=== PATIENT | male | born 2000 | race Caucasian/White ===

== ENCOUNTER 2022-06-17 16:48 | Emergency (ER) | payer OTHER ==
[2022-06-17 18:16] LABS: Absolute Lymphocytes (CBC) 1.1 K/uL (0.7-4.9); Hematocrit 53.1 % (39.6-49.0); MCV 91.2 fL (80-100); MPV 8.3 fL (7.6-11.3); RBC Red Blood Cell Count 5.82 M/uL (4.33-5.43)
[2022-06-17 18:57] LABS: SARS-COV-2 RT PCR POSITIVE (NEGATIVE)
[2022-06-17 18:58] LABS: Albumin 3.8 g/dL (3.4-5.0); Bilirubin Total 0.8 mg/dL (0.2-1.0); Potassium 3.5 mmol/L (3.5-5.1); Protein, Total 7.7 g/dL (6.4-8.2)
--- NOTE | 2022-06-17 19:04 | EDPHYS ---
Physician Documentation [facility] Name: Mohan Argueta Age: 21 yrs Sex: Male : 2000 Arrival Date: 06/17/2022 Time: 16:49 Bed 11 Private MD: ED Physician Zbigniew Singh HPI: 06/17 17:20 This 21 yrs old Male presents to ER via Ambulatory with complaints of Diarrhea, jh7 Dizziness, prednisone withdrawal. 17:20 The patient presents to the emergency department with diarrhea. Onset: The jh7 symptoms/episode began/occurred 5 day(s) ago. Associated signs and symptoms: Pertinent positives: diarrhea, Sore throat, body aches, Pertinent negatives: fever, nausea, vomiting. Patient seen at [facility] on 06/12. He tested negative on all swabs and was prescribed prednisone 40 mg BIANCA x 5 days. States that over the past few days he has developed diarrhea and body aches. He states that he stopped prednisone on day 3 and is concerned that he might be withdrawing from it due to his symptoms.. Historical: - Allergies: 17:33 Dog/Cat; vg1 - Home Meds: 17:33 Trilogy [Active]; Albuterol Inhl [Active]; Zyrtec Oral [Active]; vg1 - PMHx: 17:33 Asthma; vg1 - PSHx: 17:33 inguinal hernia; Gynecomastia; vg1 - Immunization history:: Client reports receiving the 2nd dose of the Covid vaccine. - Social history:: Smoking status: Reported history of juuling and/or vaping. Patient uses street drugs, marijuana. ROS: 17:20 Constitutional: Negative for fever, chills, and weight loss, Eyes: Negative for injury, jh7 pain, redness, and discharge, Cardiovascular: Negative for chest pain, palpitations, and edema, Respiratory: Negative for shortness of breath, cough, wheezing, and pleuritic chest pain, Back: Negative for injury and pain, MS/Extremity: Negative for injury and deformity, Skin: Negative for injury, rash, and discoloration. 17:20 ENT: Positive for sore throat, Negative for sinus congestion, sinus pain. 17:20 Abdomen/GI: Positive for diarrhea, Negative for abdominal pain, nausea and vomiting, rectal bleeding. 17:20 Neuro: Positive for dizziness, Negative for altered mental status, headache, loss of consciousness, numbness, syncope, tingling, visual changes, weakness. 17:20 All other systems are negative. Exam: 17:20 Constitutional: This is a well developed, well nourished patient who is awake, alert, jh7 and in no acute distress. Head/Face: Normocephalic, atraumatic. Eyes: Pupils equal round and reactive to light, extra-ocular motions intact. Lids and lashes normal. Conjunctiva and sclera are non-icteric and not injected. Cornea within normal limits. Periorbital areas with no swelling, redness, or edema. Neck: Trachea midline, no thyromegaly or masses palpated, and no cervical lymphadenopathy. Supple, full range of motion without nuchal rigidity, or vertebral point tenderness. No Meningismus. Cardiovascular: Regular rate and rhythm with a normal S1 and S2. No gallops, murmurs, or rubs. Normal PMI, no JVD. No pulse deficits. Respiratory: Lungs have equal breath sounds bilaterally, clear to auscultation and percussion. No rales, rhonchi or wheezes noted. No increased work of breathing, no retractions or nasal flaring. Abdomen/GI: Soft, non-tender, with normal bowel sounds. No distension or tympany. No guarding or rebound. No evidence of tenderness throughout. Back: No spinal tenderness. No costovertebral tenderness. Full range of motion. Skin: Warm, dry with normal turgor. Normal color with no rashes, no lesions, and no evidence of cellulitis. MS/ Extremity: Pulses equal, no cyanosis. Neurovascular intact. Full, normal range of motion. Neuro: Awake and alert, GCS 15, oriented to person, place, time, and situation. Motor strength 5/5 in all extremities. Sensory grossly intact. Normal gait. 17:20 ENT: Posterior pharynx: erythema, that is mild. Vital Signs: 17:29 BP 123 / 67; Pulse 84; Resp 18; Temp 98.2(TE); Pulse Ox 98% on R/A; Weight 99.79 kg; vg1 Height 5 ft. 9 in. (175.26 cm); Pain 0/10; 18:19 BP 124 / 99; Pulse 86; Resp 20; Pulse Ox 100% on R/A; mb9 17:29 Body Mass Index 32.49 (99.79 kg, 175.26 cm) vg1 MDM: 16:50 Patient medically screened. [facility] 19:03 Data reviewed: vital signs, nurses notes. [facility] 06/17 17:02 Order name: CBC with Diff; Complete Time: 18:41 [facility] 06/17 17:02 Order name: CMP; Complete Time: 19:02 [facility] 06/17 17:02 Order name: Lipase; Complete Time: 19:02 [facility] 06/17 17:20 Order name: Strep; Complete Time: 18:41 [facility] 06/17 17:20 Order name: COVID-19/FLU A+B; Complete Time: 19:02 [facility] 06/17 18:27 Order name: Throat Culture [facility] 06/17 17:02 Order name: Labs collected and sent; Complete Time: 18:17 [facility] 06/17 18:24 Order name: Labs - recollect needed: recollect green top; Complete Time: 18:34 bd Administered Medications: 17:58 Not Given (Patient Refused): NS 0.9% 1000 ml IV at 1 bolus Per protocol; 1000 mL bolus [facility] 17:58 Not Given (Patient Refused): Pepcid (famotidine) 20 mg IVP once; dilute with 10 mL 0.9% [facility] NaCl; give over 2 minutes Disposition Summary: 06/17/22 19:04 Discharge Ordered Location: Home [facility] Condition: Stable [facility] Diagnosis - Coronavirus infection, unspecified [facility] Followup: [facility] - With: Private Physician - When: 2 - 3 days - Reason: Recheck today's complaints, Continuance of care, Re-evaluation by your physician Discharge Instructions: - Discharge Summary Sheet [facility] - COVID-19 [facility] Forms: - Medication Reconciliation Form [facility] - Thank You Letter [facility] - Antibiotic Education [facility] - Prescription Opioid Use [facility] - School release form mb9 Signatures: Dispatcher [employer] EDFelipa Alva Joel, PA PA jmm Garcia, Victoria, RN RN vg1 Jil Taylor, HEAD BUCKER HEAD BUCKER [facility] Corrections: (The following items were deleted from the chart) 17:58 17:02 IV Saline Lock ordered. [place] [id number]
--- NOTE | 2022-06-17 19:04 | ER ---
Nurse's Notes [facility] Name: Mohan Argueta Age: 21 yrs Sex: Male : 2000 Arrival Date: 06/17/2022 Time: 16:49 Bed 11 Private MD: Diagnosis: Coronavirus infection, unspecified Presentation: 06/17 17:23 Chief complaint: Patient states: Started Prednisone 40 mg PO on 06/12/22 and diarrhea vg1 and dizziness began today. Stated "my body is sore and I think im having withdraws bc there was no instruction of tapering off the medication". Coronavirus screen: Vaccine status: Patient reports receiving the 2nd dose of the covid vaccine. 17:23 Method Of Arrival: Ambulatory vg1 17:29 Ebola Screen: Patient negative for fever greater than or equal to 101.5 degrees vg1 Fahrenheit, and additional compatible Ebola Virus Disease symptoms Patient denies exposure to infectious person. Initial Sepsis Screen: Does the patient meet any 2 criteria? No. Patient's initial sepsis screen is negative. Does the patient have a suspected source of infection? No. Patient's initial sepsis screen is negative. Risk Assessment: Do you want to hurt yourself or someone else? Patient reports no desire to harm self or others. Onset of symptoms was June 17, 2022. 17:29 Acuity: MELYSSA 3 vg1 Triage Assessment: 17:33 General: Appears in no apparent distress. uncomfortable, Behavior is anxious. Pain: vg1 Denies pain. GI: Abdomen is round Reports diarrhea. Historical: - Allergies: 17:33 Dog/Cat; vg1 - Home Meds: 17:33 Trilogy [Active]; Albuterol Inhl [Active]; Zyrtec Oral [Active]; vg1 - PMHx: 17:33 Asthma; vg1 - PSHx: 17:33 inguinal hernia; Gynecomastia; vg1 - Immunization history:: Client reports receiving the 2nd dose of the Covid vaccine. - Social history:: Smoking status: Reported history of juuling and/or vaping. Patient uses street drugs, marijuana. Assessment: 18:16 Reassessment: pt brought back to ER room. mb9 18:17 General: Appears comfortable, Behavior is cooperative. Neuro: Level of Consciousness is mb9 awake, alert, obeys commands, Oriented to person, place, time, situation, Appropriate for age Reports dizziness. Cardiovascular: Capillary refill < 3 seconds is brisk Patient's skin is warm and dry. Respiratory: Airway is patent Respiratory effort is even, unlabored, Respiratory pattern is regular, symmetrical. GI: Abdomen is round non-distended, Bowel sounds present X 4 quads. Abd is soft and non tender X 4 quads. Reports diarrhea. : No signs and/or symptoms were reported regarding the genitourinary system. EENT: No signs and/or symptoms were reported regarding the EENT system. Derm: Skin is pink, warm \\T\\ dry. Musculoskeletal: Range of motion:. 19:14 Reassessment: No changes from previously documented assessment. Patient and/or family mb9 updated on plan of care and expected duration. Pain level reassessed. Patient is alert, oriented x 3, equal unlabored respirations, skin warm/dry/pink. Vital Signs: 17:29 BP 123 / 67; Pulse 84; Resp 18; Temp 98.2(TE); Pulse Ox 98% on R/A; Weight 99.79 kg; vg1 Height 5 ft. 9 in. (175.26 cm); Pain 0/10; 18:19 BP 124 / 99; Pulse 86; Resp 20; Pulse Ox 100% on R/A; mb9 17:29 Body Mass Index 32.49 (99.79 kg, 175.26 cm) vg1 ED Course: 16:49 Patient arrived in ED. am2 16:50 Jil Taylor FNP is PHCP. 7 16:50 Zbigniew Singh MD is Attending Physician. [facility] 17:31 Triage completed. vg1 17:33 Arm band placed on. vg1 18:34 Cathy Alexandra, NIRMAL is Primary Nurse. mb9 18:34 Inserted saline lock: 22 gauge in right antecubital area, using aseptic technique. 9 18:49 PHCP role handed off by Jil Taylor FNP [facility] 18:49 Wade Ceballos PA is PHCP. [facility] 19:14 IV discontinued, intact, bleeding controlled, No redness/swelling at site. Pressure mb9 dressing applied. Administered Medications: 17:58 Not Given (Patient Refused): NS 0.9% 1000 ml IV at 1 bolus Per protocol; 1000 mL bolus [facility] 17:58 Not Given (Patient Refused): Pepcid (famotidine) 20 mg IVP once; dilute with 10 mL 0.9% 7 NaCl; give over 2 minutes Outcome: 19:04 Discharge ordered by . abraham 19:14 Discharged to home ambulatory. andreea 19:14 Condition: stable 19:14 Discharge instructions given to patient, Instructed on discharge instructions, follow up and referral plans. Demonstrated understanding of instructions, follow-up care. 19:15 Patient left the ED. mb9 Signatures: Wade Ceballos PA PA jmm Moreno, Amanda am2 Garcia, Victoria, RN RN vg1 Jil Taylor, CITY ATTORNEY CITY ATTORNEY 7 Cathy Alexandra, RN RN mb9
[2022-06-17 19:43] VITALS: TEMP 98.2
[2022-06-17 19:49] VITALS: BP 124/99; O2SAT 100
== END 2022-06-17 19:15 | disposition home or self-care (01) ==
LOC: ER 16:48
DX: U07.1 COVID-19 (principal); J45.909 Unspecified asthma, uncomplicated
CPT/HCPCS: 87070; 85025; 36415; 87081; 83690; 80053; 0240U